=== PATIENT | male | born 1975 | race African-American/Black ===

== ENCOUNTER 2017-02-25 12:12 | Emergency (ER) | payer MEDICAID ==
[~2017-02-25 12:12] MED LIST: DICL50TA3 PO
[2017-02-25 12:13] VITALS: BP 161/103; PULSE 69; RESP 18; TEMP 98.1; O2SAT 96
[2017-02-25 12:26] VITALS: BP 171/95
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
--- NOTE | 2017-02-26 13:16 | EKG ---
Date Performed: 02/25/2017 Time Performed: 12:36:23 PTAGE: 41 years EKG: Sinus rhythm NONSPECIFIC T-WAVE ABNORMALITY BORDERLINE ECG NO PREVIOUS TRACING DOCTOR: Juventino Sun Interpretating Date/Time 02/26/2017 13:12:29
== END 2017-02-25 13:15 | disposition home or self-care (01) ==
LOC: NEPD 12:12
DX: Z77.098 Contact with and (suspected) exposure to other hazardous, chiefly nonmedicinal, chemicals (principal); R94.31 Abnormal electrocardiogram [ECG] [EKG]
CPT/HCPCS: 93005

== ENCOUNTER 2017-04-12 10:57 | Emergency (ER) | payer MEDICAID ==
[2017-04-12 10:59] VITALS: BP 153/80; PULSE 97; RESP 17; TEMP 98.1; O2SAT 99
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
[2017-04-12 13:53] LABS: BLOOD, URINE NEG (NEG); GLUCOSE,URINE NEG (NEG); KETONE, URINE NEG (NEG); NITRITE,URINE NEG (NEG); PH, URINE 5.5 (5.0-8.5); URINE COLOR YELLOW (YELLW/STRAW)
[2017-04-12 13:55] LABS: AUTOMATED NEUTROPHIL # 4.4 TH/MM3 (1.8-7.7); BASOPHIL % 0.5 % (0.0-2.0); COMMENT (UR) CULT NOT INDICATED; CULTURE IF INDICATED CULT NOT INDICATED; EOSINOPHIL # 0.1 TH/MM3 (0-0.4); EOSINOPHIL % 1.5 % (0.0-4.0); HEMATOCRIT 46.4 % (39.0-51.0); HEMO FLAGS DIFF FINAL; LYMPH % 36.9 % (9.0-44.0); MEAN CORPUSCULAR HEMOGLOBIN 28.8 PG (27.0-34.0); MONO % 6.3 % (0.0-8.0); NEUT % 54.8 % (16.0-70.0); PLATELET COUNT 234 TH/MM3 (150-450); RED BLOOD COUNT 5.16 MIL/MM3 (4.50-5.90); RED CELL DISTRIBUTION WIDTH 14.4 % (11.6-17.2); WHITE BLOOD COUNT 8.1 TH/MM3 (4.0-11.0)
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
[2017-04-12 14:17] LABS: ANION GAP 4 MEQ/L (5-15); AST (GOT) 67 U/L (15-37); BICARBONATE 29.4 MEQ/L (21.0-32.0); BLOOD UREA NITROGEN 10 MG/DL (7-18); CHLORIDE 105 MEQ/L (98-107); GLOMERULAR FILTRATION RATE 67 ML/MIN (>89); POTASSIUM 3.9 MEQ/L (3.5-5.1); SODIUM (NA) 138 MEQ/L (136-145)
[2017-04-12 14:18] LABS: ALT (GPT) 120 U/L (12-78)
[2017-04-12 14:19] LABS: ALKALINE PHOSPHATASE 72 U/L (45-117); TOTAL BILIRUBIN ADULT 0.3 MG/DL (0.2-1.0)
== END 2017-04-12 17:13 | disposition home or self-care (01) ==
LOC: NEPD 10:57
DX: H53.8 Other visual disturbances (principal); Z01.89 Encounter for other specified special examinations
CPT/HCPCS: 80053; 80307; 81001; 85025; 99283

== ENCOUNTER 2017-07-31 15:38 | Emergency (ER) | payer SELFPAY ==
[2017-07-31 15:40] VITALS: BP 140/97; PULSE 76; RESP 15; TEMP 97.5; O2SAT 100
--- NOTE | 2017-07-31 16:22 | RADRPT ---
EXAM DATE/TIME: 07/31/2017 16:06 [facility] COMPARISON: No previous studies available for comparison. INDICATIONS : Left rib pain, no known trauma MEDICAL HISTORY : None. SURGICAL HISTORY : None. ENCOUNTER: Initial ACUITY: 1 month PAIN SCORE: 8/10 LOCATION: Bilateral chest FINDINGS: PA and lateral views of the chest demonstrate the lungs to be symmetrically aerated without evidence of mass, infiltrate or effusion. The cardiomediastinal contours are unremarkable. Osseous structure s are intact. CONCLUSION: 1. No acute cardiopulmonary disease. Specifically, no displaced rib fractures or pneumothorax. Chandra Saldivar MD on July 31, 2017 at 16:19 Board Certified Radiologist. This report was verified electronically.
--- NOTE | 2017-07-31 17:06 | PD ---
HPI Chief Complaint: Musculoskeletal Complaint Time Seen by Provider: 16:54 Travel History International Travel<30 days: No Contact w/Intl Traveler<30days: No Traveled to known affect area: No History of Present Illness HPI 42 YO M presents to the ED for evaluation of 1 month history of 10/10 left anterior rib pain, radiating to the back. Worsened by coughing and certain motions. Gradual onset. Patient can identify no acute injury. He states he is otherwise been healthy. He denies fever, chills, nausea, vomiting, productive cough, chest pain, palpitations, shortness of breath, abdominal pain , nausea, vomiting, dysuria. He states that about 10 years since he saw his primary care provider. No treatment attempted at home. PFSH Past Medical History Diminished Hearing: No Social History Alcohol Use: No Tobacco Use: No Substance Use: No Allergies-Medications (Allergen,Severity, Reaction): Coded Allergies: No Known Allergies (Unverified , 02/25/17) Reported Meds & Prescriptions Reported Meds & Active Scripts Active No Active Prescriptions or Reported Medications Review of Systems Except as stated in HPI: all other systems reviewed are Neg Physical Exam Narrative GENERAL: Well-nourished, well-developed male in no acute distress.. SKIN: Focused skin assessment warm/dry. HEAD: Normocephalic. EYES: No scleral icterus. No injection or drainage. NECK: Supple, trachea midline. No JVD or lymphadenopathy. CARDIOVASCULAR: Regular rate and rhythm without murmurs, gallops, or rubs. CHEST: Tender to palpation in the left lateral anterior chest. Otherwise nontender throughout without deformity or crepitus. No retractions or use of accessory muscles. RESPIRATORY: Breath sounds clear and equal bilaterally. No accessory muscle use. GASTROINTESTINAL: Abdomen soft, non-tender, nondistended. Active bowel sounds. MUSCULOSKELETAL: No cyanosis, or edema. BACK: Nontender without obvious deformity. No CVA tenderness. Data Data Last Documented VS Vital Signs Date Time Temp Pulse Resp B/P (MAP) Pulse Ox O2 Delivery O2 Flow Rate FiO2 07/31/17 17:24 07/31/17 15:40 97.5 76 15 100 Orders Orders Chest, Pa & Lat (07/31/17 ) Ibuprofen (Motrin) (07/31/17 17:30) Ed Discharge Order (07/31/17 17:18) MDM Medical Decision Making Medical Screen Exam Complete: Yes Emergency Medical Condition: Yes Differential Diagnosis Musculoskeletal pain versus costochondritis versus rib fracture versus other Narrative Course 42 YO M presents to the ED for evaluation of 1 month history of 10/10 left anterior rib pain, radiating to the back. Worsened by coughing and certain motions. Gradual onset. Patient can identify no acute injury. He states he is otherwise been healthy. He denies fever, chills, nausea, vomiting, productive cough, chest pain, palpitations, shortness of breath, abdominal pain , nausea, vomiting, dysuria. Vitals reviewed. Physical exam reveals some reproducible tenderness over the left lateral anterior ribs but is otherwise unremarkable. Chest x-ray reveals no infiltrate or bony injury. This is musculoskeletal chest pain. Patient is instructed to treat with OTC anti- inflammatories, follow-up with the [facility]. He indicated understanding of instructions and is agreeable to the care plan. The patient is stable and discharged home. Diagnosis Primary Impression: Musculoskeletal chest pain Referrals: [facility] Patient Instructions: General Instructions, Musculoskeletal Pain (ED) Additional Instructions: Rest, hydrate. Resume normal, gentle activities as tolerated. No strenuous physical activities for the next few days Take [id number] pain medications such as ibuprofen as needed for muscle aches. Applying ice or heat to areas with sore muscles may help to improve your pain. Do not apply ice/ heat for longer than 20 m/h. Follow-up with your primary care provider as discussed. Return to the ED for any urgent or emergent medical condition. Scripts No Active Prescriptions or Reported Meds Disposition: 01 DISCHARGE HOME Condition: Stable Roma Russell Jul 31, 2017 17:06
[2017-07-31] MEDS ORDERED: IBUPROFEN 600 MG TAB PO ONE (17:30)
== END 2017-07-31 17:25 | disposition home or self-care (01) ==
LOC: NEPK 15:38
DX: R07.89 Other chest pain (principal); R05 Cough
CPT/HCPCS: 71020; 99283